=== PATIENT | female | born 1930 | race Caucasian/White ===

== ENCOUNTER → 2020-04-18 | Outpatient (CLI) | payer MEDICARE ==
--- NOTE | 2020-04-18 17:00 | RAD ---
DATE: 04/18/2020 10:55 AM EXAM: DIGITAL SCREEN BILAT W/CAD HISTORY: Screening COMPARISON: 11/22/2018 Bilateral full field craniocaudal and mediolateral oblique images were obtained using digital technique. This study was interpreted with the benefit of Computerized Aided Detection (CAD). FINDINGS: Breast Density: SCATTERED The breast parenchyma shows scattered fibroglandular densities. Breast parenchyma level B No suspicious masses, microcalcifications or architectural distortion is present to suggest malignancy in either breast. The visualized axillae are unremarkable. IMPRESSION: No mammographic evidence of malignancy. BI-RADS CATEGORY: 1 NEGATIVE RECOMMENDED FOLLOW-UP: 12M 12 MONTH FOLLOW-UP Annual screening mammography is recommended, unless clinically indicated sooner based on symptoms or change in physical exam. PQRS compliance statement: Patient information was entered into a reminder system with a target due date for the next mammogram. Mammography is a sensitive method for finding small breast cancers, but it does not detect them all and is not a substitute for careful clinical examination. A negative mammogram does not negate a clinically suspicious finding and should not result in delay in biopsying a clinically suspicious abnormality. "Our facility is accredited by the [employer] Mammography Program."
--- NOTE | 2020-04-18 17:17 | RAD ---
Three-view study lumbar spine Clinical indications: Low back pain FINDINGS: No compression fracture or discitis or lytic process is evident. There is moderate to severe dextroscoliosis present. There is right lateral subluxation of L4 with respect L5. This measures approximately 10 mm. Transverse processes appear intact although not all of them are well seen. There is degenerative disc space narrowing and endplate spurring throughout the lumbar spine. No anterolisthesis is evident. Degenerative facet arthropathy is seen throughout the lumbar spine. IMPRESSION: Moderate to severe dextroscoliosis and degenerative lumbar spondylosis. No acute compression fracture. Electronically signed by: Marcos Keller MD (04/18/2020 5:14 PM) [id number]
== END | disposition home or self-care (01) ==
LOC: MAMMO 10:44
PROVIDERS: ATTEND Family Medicine
DX: Z12.31 Encounter for screening mammogram for malignant neoplasm of breast (principal); M48.061 Spinal stenosis, lumbar region without neurogenic claudication; M25.78 Osteophyte, vertebrae; M47.816 Spondylosis without myelopathy or radiculopathy, lumbar region; M41.86 Other forms of scoliosis, lumbar region
CPT/HCPCS: 72100; 77067